=== PATIENT | female | born 1985 | race Caucasian/White ===

== ENCOUNTER 2018-03-11 16:30 | Emergency (ER) | END 2018-03-11 19:26 | disposition home or self-care (01) ==

== ENCOUNTER 2018-03-18 10:00 | Emergency (ER) | END 2018-03-18 13:31 | disposition home or self-care (01) ==

== ENCOUNTER 2018-10-27 20:54 | Emergency (ER) | END 2018-10-28 00:18 | disposition home or self-care (01) ==